=== PATIENT | male | born 1995 | race Caucasian/White ===

== ENCOUNTER 2017-08-17 18:12 | Emergency (ER) | payer OTHER ==
[~2017-08-17] VITALS: Ht 188 cm; Wt 108.9 kg
[~2017-08-17 18:12] MED LIST: COZAAR25 MG; NORCO 5-325 TA1 EACH PO; PREDNISONE20 MG PO; PROAIR HFA8.5 GM INH; PROVENTIL HFA6.7 GM INH; TRAMADOL HCL50 MG PO; ZOFRAN ODT4 MG PO
== END 2017-08-17 21:45 | disposition home or self-care (01) ==
LOC: ED 18:12
DX: S61.212A Laceration without foreign body of right middle finger without damage to nail, initial encounter (principal); I10 Essential (primary) hypertension; J45.909 Unspecified asthma, uncomplicated; Z23 Encounter for immunization; Z88.5 Allergy status to narcotic agent; Z79.899 Other long term (current) drug therapy; W23.0XXA Caught, crushed, jammed, or pinched between moving objects, initial encounter
CPT/HCPCS: 73140; 90471; 90715; 99283

== ENCOUNTER 2017-08-20 13:05 | Emergency (ER) | payer OTHER ==
[~2017-08-20] VITALS: Ht 188 cm; Wt 108.9 kg
[2017-08-20] MEDS ORDERED: ZITHROMAX250 MG PO (14:06)
[2017-08-20] MEDS ORDERED: ALBUTEROL2.5 MG/3 M INH (14:06)
[2017-08-20] MEDS ORDERED: VENTOLIN HFA18 GM INH (14:06)
[2017-08-20] MEDS ORDERED: PREDNISONE20 MG PO (14:06)
== END 2017-08-20 14:15 | disposition home or self-care (01) ==
LOC: ED 13:05
DX: J45.909 Unspecified asthma, uncomplicated (principal); I10 Essential (primary) hypertension; Z88.5 Allergy status to narcotic agent; Z79.899 Other long term (current) drug therapy
CPT/HCPCS: 71045; 94640; 99283; J7512

== ENCOUNTER 2017-10-28 02:23 | Emergency (ER) | payer OTHER ==
[~2017-10-28] VITALS: Ht 188 cm; Wt 108.9 kg
[~2017-10-28 02:23] MED LIST changes: +ALBUTEROL2.5 MG/3 M INH; +VENTOLIN HFA18 GM INH; +ZITHROMAX250 MG PO
[2017-10-28] MEDS ORDERED: TRAMADOL HCL50 MG PO (04:35)
[2017-10-28] MEDS ORDERED: DOXYCYCLINE HY100 MG PO (04:35)
== END 2017-10-28 04:46 | disposition home or self-care (01) ==
LOC: ED 02:23
DX: N45.1 Epididymitis (principal); I10 Essential (primary) hypertension; Z88.5 Allergy status to narcotic agent; Z79.899 Other long term (current) drug therapy
CPT/HCPCS: 76870; 99284

== ENCOUNTER 2017-12-28 17:34 | Emergency (ER) | payer OTHER ==
[~2017-12-28] VITALS: Ht 188 cm; Wt 108.9 kg
[~2017-12-28 17:34] MED LIST changes: +DOXYCYCLINE HY100 MG PO
[2017-12-28] MEDS ORDERED: VENTOLIN HFA18 GM INH (17:50)
[2017-12-28] MEDS ORDERED: METHYLPREDNISOLO4 M1 PO (17:50)
[2017-12-28] MEDS ORDERED: ZITHROMAX250 MG PO (17:50)
== END 2017-12-28 17:55 | disposition home or self-care (01) ==
LOC: ED 17:34
DX: J45.901 Unspecified asthma with (acute) exacerbation (principal); J06.9 Acute upper respiratory infection, unspecified; I10 Essential (primary) hypertension; Z88.5 Allergy status to narcotic agent; Z79.899 Other long term (current) drug therapy
CPT/HCPCS: 99284

== ENCOUNTER 2018-10-18 23:08 | Emergency (ER) | payer SELFPAY ==
[~2018-10-18] VITALS: Ht 188 cm; Wt 111.8 kg
[~2018-10-18 23:08] MED LIST changes: +METHYLPREDNISOLO4 M1 PO
--- OUTSIDE RECORDS SUMMARY | 2018-10-18 23:10 | XMS ---
PreManage Notification: ANTONIO MAY Security [employer] C[employer] Events No recent Security Events currently on file CRITERIA MET - Group Notification - [facility] - Has Care Guidelines CARE PROVIDERS EZEKIEL SEVERINO Nurse Practitioner: Family 12/31/2017-Current PHONE: Unknown [facility] Current PHONE: [phone] Angel has no Care Guidelines for this patient. Care History Medical/Surgical 12/31/2017 [facility] Care Recommendation: This patient has had 5 or more Emergency Department visits in the last 12 months.\T\nbsp; Patient requires education on the scope and purpose of the ED as an acute care provider not a Primary Care Provider and should not be utilized for chronic conditions.\T\nbsp; If patient returns to ED please contact Community Health WorkerSamantha at [phone]. These are guidelines and the provider should exercise clinical judgment when providing care. E.D. VISIT COUNT (12 MO.) 3 URBANO Frey TOTAL 3 NOTE: Visits indicate total known visits. ED/UCC VISIT TRACKING (12 MO.) 10/18/2018 23:08 [facility] [place] TYPE: Emergency COMPLAINT: - POSS BROKEN NOSE 12/28/2017 17:35 [facility] TYPE: Emergency COMPLAINT: - SOB DIAGNOSES: - Shortness of breath - Other residential (current) drug therapy - Acute upper respiratory infection, unspecified - Allergy status to narcotic agent status - Unspecified asthma with (acute) exacerbation - Essential (primary) hypertension 10/28/2017 02:24 [facility] TYPE: Emergency COMPLAINT: - GENITAL ISSUES DIAGNOSES: - Epididymitis - Allergy status to narcotic agent status - RIGHT TESTICULAR PAIN - Other long term care pharmacist (current) drug therapy - Essential (primary) hypertension INPATIENT VISIT TRACKING (12 MO.) No inpatient visits to display in this time frame [email or web address]
== END 2018-10-19 00:56 | disposition home or self-care (01) ==
LOC: ED 23:08
DX: S00.33XA Contusion of nose, initial encounter (principal); J45.909 Unspecified asthma, uncomplicated; I10 Essential (primary) hypertension; Z88.5 Allergy status to narcotic agent; W21.05XA Struck by basketball, initial encounter
CPT/HCPCS: 70160; 99283